=== PATIENT | male | born 1970 | race Caucasian/White ===

== ENCOUNTER → 2021-02-05 | Outpatient (CLI) | payer OTHER ==
[~2021-02-05] MED LIST: ASPIR-TRIN325 MG PO; BUSPAR 10MG10 MG PO; COREG 25MG TAB25 MG PO; LANTUS100 UNIT/1 SC; NEURONTIN 300300 MG PO; OMEPRAZOLE20 MG PO; PROTONIX 40 MG40 M1 PO; ROBAXIN 750 MG750 MG PO; TRAMADOL HCL50 MG PO; TYLENOL 325MG325 MG PO
== END ==
LOC: HEART 5 14:14
DX: R06.02 Shortness of breath (principal); J44.9 Chronic obstructive pulmonary disease, unspecified
CPT/HCPCS: 36600; 71046; 82803; 94060; 94729

== ENCOUNTER → 2021-02-05 | Outpatient (CLI) | payer OTHER | LOC: RAD 16:25 | DX: J44.9 Chronic obstructive pulmonary disease, unspecified (principal) | CPT/HCPCS: 36600; 71046; 82803 ==

== ENCOUNTER → 2021-03-17 | Outpatient (CLI) | payer OTHER | LOC: SLEEP 14:29 | DX: G47.33 Obstructive sleep apnea (adult) (pediatric) (principal) | CPT/HCPCS: 95810 ==